=== PATIENT | female | born 1970 | race African-American/Black ===

== ENCOUNTER 2021-01-01 14:18 | Emergency (ER) | payer OTHER ==
[2021-01-01 15:36] LABS: ALT (SGPT) 16 U/L (8-55); AST (SGOT) 11 U/L (5-34); Albumin 3.5 g/dL (3.5-5.0); Alkaline Phosphatase 103 U/L (40-110); Anion Gap 12 mmol/L (10-20); BUN (Urea Nitrogen) 17 mg/dL (7.0-18.7); Bilirubin, Total 0.3 mg/dL (0.2-1.2); Calc. Creatinine Clearance 0 mL/min (70-130); Calcium 8.8 mg/dL (7.8-10.44); Carbon Dioxide 24 mmol/L (22-29); Chloride 110 mmol/L (98-107); Globulin 3.7 g/dL (2.4-3.5); Glucose 108 mg/dL (70-105); Potassium 3.6 mmol/L (3.5-5.1); Protein, Total 7.2 g/dL (6.0-8.3); Sodium 142 mmol/L (136-145)
[2021-01-01 15:37] LABS: #Monocytes 0.2 10x3/uL (0.0-1.1); %Basophils 0.3 % (0.0-2.0); %Lymphocytes 47.7 % (18.0-47.0); %Monocytes 5.4 % (0.0-10.0); Hemoglobin 10.8 g/dL (12.0-15.5); Mean Corpuscular HGB CONC 32.5 g/dL (32.0-36.0); Mean Corpuscular Hemoglobin 36.7 pg (27.0-33.0); Mean Corpuscular Volume 112.9 fl (81.6-98.3); Mean Platelet Volume 11.7 fl (7.4-10.4); Platelet Count 75 10x3/uL (150-450); RBC Distribution Width 15.8 % (11.5-14.5); Red Blood Cell (RBC) Count 2.94 10x6/uL (3.90-5.03); White Blood Cell (WBC) Count 3.7 10x3/uL (3.5-10.5)
[2021-01-01 15:40] LABS: #Neutrophils 1.7 10x3/uL (1.5-8.4); %Neutrophils 46.6 % (40.0-75.0)
[2021-01-01] MEDS ORDERED: Ketorolac Tromethamine 30 MG/ML VIAL ONE (16:33)
[2021-01-01] MEDS ORDERED: Dexamethasone 10 MG/ML VIAL ONE (16:33)
[2021-01-01] MEDS ORDERED: Ondansetron PF 4 MG/2 ML Vial ONE (16:44)
[2021-01-01 17:27] LABS: Bilirubin Neg (Negative); Blood, Urine Negative (Negative); Glucose, Urine (Dipstick) Normal (Negative); Ketone, Urine Negative (Negative); Leukocyte 25 (Negative); Nitrite Negative (Negative); Protein, Urine (Dipstick) Negative (Neg-Trace); Specific Gravity, Urine 1.025 (1.002-1.036); Urobilinogen Normal mg/dL (Less than 2)
[2021-01-01 17:55] LABS: Clarity Clear (Clear)
[2021-01-01 17:59] LABS: RBC/HPF None Seen HPF (0-3)
[2021-01-01 18:00] LABS: WBC/HPF 0-3 HPF (0-3)
[2021-01-01 18:01] LABS: Bacteria/HPF Rare-Few HPF (None Seen)
== END 2021-01-01 16:50 | disposition home or self-care (01) ==
LOC: CSHERS 14:18
DX: R07.89 Other chest pain (principal); D64.9 Anemia, unspecified; M19.90 Unspecified osteoarthritis, unspecified site; M06.9 Rheumatoid arthritis, unspecified; J45.909 Unspecified asthma, uncomplicated; I10 Essential (primary) hypertension; Z79.52 Long term (current) use of systemic steroids
CPT/HCPCS: 36415; 71045; 80053; 81003; 81015; 84484; 85025; 87086; 93005; 96374; 96375; J1100; J1885; J2405

== ENCOUNTER 2021-08-05 11:12 | Emergency (ER) | payer OTHER ==
[2021-08-05 11:56] LABS: Bilirubin Neg (Negative); Blood, Urine Negative (Negative); Clarity Clear (Clear); Glucose, Urine (Dipstick) Normal (Negative); Ketone, Urine Negative (Negative); Leukocyte Negative (Negative); Nitrite Negative (Negative); Protein, Urine (Dipstick) 15 mg/dl (Neg-Trace); Urobilinogen Normal mg/dL (Less than 2)
[2021-08-05] MEDS ORDERED: Ketorolac Tromethamine 30 MG/ML VIAL ONE (12:45)
== END 2021-08-05 11:25 | disposition home or self-care (01) ==
LOC: CSHERS 11:12
DX: R10.9 Unspecified abdominal pain (principal); R32 Unspecified urinary incontinence; J45.909 Unspecified asthma, uncomplicated; F17.210 Nicotine dependence, cigarettes, uncomplicated; D64.9 Anemia, unspecified; I10 Essential (primary) hypertension; Z79.899 Other long term (current) drug therapy
CPT/HCPCS: 81003; 87086; 96372; 99281; J1885

== ENCOUNTER 2021-11-15 02:32 | Emergency (ER) | payer OTHER ==
[2021-11-15] MEDS ORDERED: hydrOXYzine 25 MG TAB ONE (02:48)
[2021-11-15] MEDS ORDERED: Acetaminophen 500 MG TAB ONE (02:48)
[2021-11-15] MEDS ORDERED: Ketorolac Tromethamine 30 MG/ML VIAL ONE (02:48)
== END 2021-11-15 04:00 | disposition home or self-care (01) ==
LOC: CSHERS 02:32
DX: S80.01XA Contusion of right knee, initial encounter (principal); D64.9 Anemia, unspecified; I10 Essential (primary) hypertension; M06.9 Rheumatoid arthritis, unspecified; J45.909 Unspecified asthma, uncomplicated; F17.210 Nicotine dependence, cigarettes, uncomplicated; W18.09XA Striking against other object with subsequent fall, initial encounter
CPT/HCPCS: 96372; 99283; J1885

== ENCOUNTER 2022-02-17 05:06 | Emergency (ER) | payer OTHER | END 2022-02-17 06:24 | disposition home or self-care (01) | LOC: CSHERS 05:06 | DX: R11.0 Nausea (principal); R51.9 Headache, unspecified; I10 Essential (primary) hypertension; F17.210 Nicotine dependence, cigarettes, uncomplicated; D64.9 Anemia, unspecified | CPT/HCPCS: 99284 ==

== ENCOUNTER 2022-07-08 15:51 | Emergency (ER) | payer OTHER ==
[2022-07-08 16:34] LABS: Bilirubin Neg (Negative); Blood, Urine Negative (Negative); Clarity Clear (Clear); Glucose, Urine (Dipstick) Normal (Negative); Ketone, Urine Negative (Negative); Leukocyte Negative (Negative); Nitrite Negative (Negative); Protein, Urine (Dipstick) Negative (Neg-Trace); Specific Gravity, Urine 1.015 (1.005-1.030); Urobilinogen Normal mg/dL (Less than 2)
[2022-07-08] MEDS ORDERED: Ondansetron ODT 4 MG TAB ONE (16:47)
[2022-07-08] MEDS ORDERED: Ketorolac Tromethamine 30 MG/ML VIAL ONE (16:48)
[2022-07-08 17:12] LABS: #Monocytes 0.2 10x3/uL (0.0-1.1); #Neutrophils 1.7 10x3/uL (1.5-8.4); %Lymphocytes 38.4 % (18.0-47.0); %Monocytes 5.6 % (0.0-10.0); %Neutrophils 55.7 % (40.0-75.0); Hemoglobin 11.5 g/dL (12.0-15.5); Mean Corpuscular HGB CONC 35.2 g/dL (32.0-36.0); Mean Corpuscular Hemoglobin 39.4 pg (27.0-33.0); Mean Platelet Volume 10.9 fl (7.4-10.4); Platelet Count 84 10x3/uL (150-450); RBC Distribution Width 14.7 % (11.5-14.5); Red Blood Cell (RBC) Count 2.92 10x6/uL (3.90-5.03)
[2022-07-08 17:22] LABS: ALT (SGPT) 11 U/L (8-55); AST (SGOT) 14 U/L (5-34); Albumin 4.1 g/dL (3.5-5.0); Alkaline Phosphatase 99 U/L (40-110); Anion Gap 13 mmol/L (10-20); BUN (Urea Nitrogen) 13 mg/dL (7.0-18.7); Bilirubin, Total 0.3 mg/dL (0.2-1.2); Calc. Creatinine Clearance 0 mL/min (70-130); Carbon Dioxide 24 mmol/L (22-29); Chloride 107 mmol/L (98-107); Estimated GFR 97; Globulin 3.8 g/dL (2.4-3.5); Glucose 110 mg/dL (70-105); Lipase 19 U/L (8-78); Protein, Total 7.9 g/dL (6.0-8.3); Sodium 140 mmol/L (136-145)
== END 2022-07-08 19:00 | disposition home or self-care (01) ==
LOC: CSHERS 15:51
DX: M54.50 Low back pain, unspecified (principal); R10.30 Lower abdominal pain, unspecified; I10 Essential (primary) hypertension; F17.210 Nicotine dependence, cigarettes, uncomplicated
CPT/HCPCS: 36415; 74176; 80053; 81003; 83690; 85025; 96372; J1885; Q0162

== ENCOUNTER 2022-08-28 22:36 | Observation (INO) | payer OTHER ==
[2022-08-28] MEDS ORDERED: Ondansetron ODT 4 MG TAB ONE ×2 (22:50→22:52)
[2022-08-29] MEDS ORDERED: methylPREDNISolone Sod Succ/PF 125 MG/2 ML VIAL ONE (00:10)
[2022-08-29] MEDS ORDERED: Magnesium 2 GM/50 ML BAG (IN WATER) ONE (00:10)
[2022-08-29 00:28] LABS: #Monocytes 0.1 10x3/uL (0.0-1.1); #Neutrophils 1.8 10x3/uL (1.5-8.4); %Basophils 0.4 % (0.0-2.0); %Eosinophils 0.4 % (0.0-6.0); %Lymphocytes 25.5 % (18.0-47.0); %Monocytes 5.2 % (0.0-10.0); %Neutrophils 68.1 % (40.0-75.0); Hemoglobin 11.8 g/dL (12.0-15.5); Mean Corpuscular HGB CONC 35.5 g/dL (32.0-36.0); Mean Corpuscular Hemoglobin 38.7 pg (27.0-33.0); Mean Corpuscular Volume 108.9 fl (81.6-98.3); Mean Platelet Volume 9.9 fl (7.4-10.4); Platelet Count 103 10x3/uL (150-450); RBC Distribution Width 14.4 % (11.5-14.5); Red Blood Cell (RBC) Count 3.05 10x6/uL (3.90-5.03); White Blood Cell (WBC) Count 2.7 10x3/uL (3.5-10.5)
[2022-08-29 00:31] LABS: ALT (SGPT) 144 U/L (8-55); AST (SGOT) 121 U/L (5-34); Albumin 4.2 g/dL (3.5-5.0); Alkaline Phosphatase 137 U/L (40-110); Anion Gap 15 mmol/L (10-20); BUN (Urea Nitrogen) 12 mg/dL (7.0-18.7); Bilirubin, Total 0.2 mg/dL (0.2-1.2); Calc. Creatinine Clearance 0 mL/min (70-130); Calcium 9.2 mg/dL (7.8-10.44); Carbon Dioxide 21 mmol/L (22-29); Chloride 107 mmol/L (98-107); Estimated GFR 83; Globulin 3.8 g/dL (2.4-3.5); Glucose 130 mg/dL (70-105); Potassium 4.1 mmol/L (3.5-5.1); Sodium 139 mmol/L (136-145)
[2022-08-29 01:26] LABS: Anisocytosis SLIGHT = 6-15 cells (100X) (0-5/hpf); Macrocytosis SLIGHT = 6-15 cells (100X) (0-5/hpf); Ovalocytes SLIGHT = 2-5 cells (100X) (0-1/hpf); Platelet Morphology Comment Appears Decreased
[2022-08-29] MEDS ORDERED: Budesonide 0.5 MG/2 ML NEB NEB SCH ×2 (07:00→18:30)
[2022-08-29] MEDS ORDERED: Arformoterol 15 MCG/2 ML NEB NEB SCH ×2 (07:00→18:30)
[2022-08-29] MEDS ORDERED: Ibuprofen 200 MG TAB ONE (09:37)
[2022-08-29] MEDS ORDERED: methylPREDNISolone Sod Succ 40 MG VIAL IVP SCH (12:00)
[2022-08-30] MEDS ORDERED: Budesonide 0.5 MG/2 ML NEB ONE (06:37)
== END 2022-08-29 10:06 | disposition home or self-care (01) ==
LOC: CSHERS 22:36 → CSHERHOLD 08-29 04:19 → INTOOBSV 08-29 04:19
PROVIDERS: ADMIT Family Medicine; ATTEND Nurse Practitioner Family
DX: J45.901 Unspecified asthma with (acute) exacerbation (principal); F17.210 Nicotine dependence, cigarettes, uncomplicated; I10 Essential (primary) hypertension
CPT/HCPCS: 71045; 80053; 83880; 84484; 85025; 93005; 93970; 96374; 96375; G0378; J2930; J3475; J7620; J7626; Q0162

== ENCOUNTER 2022-11-19 16:28 | Emergency (ER) | payer OTHER ==
[2022-11-19 17:33] LABS: Hemoglobin 11.6 g/dL (12.0-15.5); Mean Corpuscular Hemoglobin 36.4 pg (27.0-33.0); Mean Platelet Volume 10.4 fl (7.4-10.4); Platelet Count 103 10x3/uL (150-450); RBC Distribution Width 15.4 % (11.5-14.5); Red Blood Cell (RBC) Count 3.19 10x6/uL (3.90-5.03); White Blood Cell (WBC) Count 3.8 10x3/uL (3.5-10.5)
[2022-11-19 17:39] LABS: ALT (SGPT) 20 U/L (8-55); AST (SGOT) 14 U/L (5-34); Alkaline Phosphatase 107 U/L (40-110); Anion Gap 12 mmol/L (10-20); BUN (Urea Nitrogen) 23 mg/dL (7.0-18.7); Bilirubin, Total 0.2 mg/dL (0.2-1.2); Calc. Creatinine Clearance 0 mL/min (70-130); Calcium 9.2 mg/dL (7.8-10.44); Carbon Dioxide 26 mmol/L (22-29); Chloride 107 mmol/L (98-107); Estimated GFR 61; Globulin 3.9 g/dL (2.4-3.5); Glucose 92 mg/dL (70-105); Potassium 4.3 mmol/L (3.5-5.1); Protein, Total 7.9 g/dL (6.0-8.3); Sodium 141 mmol/L (136-145)
[2022-11-19 18:07] LABS: MDiff Complete? YES
[2022-11-19 18:28] LABS: Bilirubin Neg (Negative); Blood, Urine Negative (Negative); Clarity Clear (Clear); Glucose, Urine (Dipstick) Normal (Negative); Ketone, Urine Negative (Negative); Leukocyte Negative (Negative); Nitrite Negative (Negative); Protein, Urine (Dipstick) Negative (Neg-Trace); Urobilinogen Normal mg/dL (Less than 2)
[2022-11-19 18:33] LABS: Band 1 % (5-11); Lymphocytes 64 % (21-51); Monocytes 2 % (0-10); Neutrophil 33 % (42-75)
[2022-11-19 18:37] LABS: Anisocytosis SLIGHT = 6-15 cells (100X) (0-5/hpf); Platelet Morphology Comment Appears Decreased; Small Platelets SLIGHT
[2022-11-19 18:39] LABS: Hypochromia SLIGHT = 6-15 cells (100X) (0-5/hpf)
== END 2022-11-19 19:47 | disposition home or self-care (01) ==
LOC: CSHERS 16:28
DX: R82.998 Other abnormal findings in urine (principal); R10.9 Unspecified abdominal pain; I10 Essential (primary) hypertension; F17.210 Nicotine dependence, cigarettes, uncomplicated
CPT/HCPCS: 36415; 80053; 81003; 85025; 99284

== ENCOUNTER 2023-03-05 18:18 | Emergency (ER) | payer OTHER ==
[2023-03-05] MEDS ORDERED: Lidocaine 1% w/Epinephrine 1:200K 30 ML VIAL ONE (19:04)
[2023-03-05] MEDS ORDERED: Clindamycin 150 MG CAP ONE (20:17)
[2023-03-05] MEDS ORDERED: Ketorolac Tromethamine 30 MG/ML VIAL ONE (20:17)
== END 2023-03-05 20:34 | disposition home or self-care (01) ==
LOC: CSHERS 18:18
DX: N76.4 Abscess of vulva (principal); F17.210 Nicotine dependence, cigarettes, uncomplicated
CPT/HCPCS: 87070; 87205; 96372; 99283; J1885

== ENCOUNTER 2023-05-13 02:59 | Emergency (ER) | payer OTHER ==
[2023-05-13] MEDS ORDERED: Ketorolac Tromethamine 30 MG/ML VIAL ONE (03:43)
[2023-05-13 04:11] LABS: Anion Gap 13 mmol/L (10-20); BUN (Urea Nitrogen) 14 mg/dL (7.0-18.7); Calc. Creatinine Clearance 0 mL/min (70-130); Calcium 9.4 mg/dL (7.8-10.44); Carbon Dioxide 24 mmol/L (22-29); Chloride 107 mmol/L (98-107); Estimated GFR 104; Glucose 115 mg/dL (70-105); Potassium 4.2 mmol/L (3.5-5.1); Sodium 140 mmol/L (136-145)
[2023-05-13 09:24] LABS: Uric Acid 3.8 mg/dL (2.6-6.0)
[2023-05-13 11:15] LABS: Follow-up Chemistry Comp? YES
== END 2023-05-13 06:03 | disposition home or self-care (01) ==
LOC: CSHERS 02:59
DX: M13.871 Other specified arthritis, right ankle and foot (principal); I10 Essential (primary) hypertension; D64.9 Anemia, unspecified; M06.9 Rheumatoid arthritis, unspecified; F17.210 Nicotine dependence, cigarettes, uncomplicated; Z79.899 Other long term (current) drug therapy
CPT/HCPCS: 36415; 80048; 84550; 96372; J1885

== ENCOUNTER 2023-07-18 13:06 | Emergency (ER) | payer OTHER ==
[2023-07-18 14:33] LABS: #Monocytes 0.3 10x3/uL (0.0-1.1); #Neutrophils 1.6 10x3/uL (1.5-8.4); %Basophils 0.2 % (0.0-2.0); %Eosinophils 0.8 % (0.0-6.0); %Lymphocytes 53.7 % (18.0-47.0); %Monocytes 6.4 % (0.0-10.0); Hematocrit 32.6 % (34.9-44.5); Hemoglobin 10.9 g/dL (12.0-15.5); Mean Corpuscular HGB CONC 33.5 g/dL (32.0-36.0); Mean Corpuscular Hemoglobin 37.5 pg (27.0-33.0); Mean Corpuscular Volume 111.8 fl (81.6-98.3); Mean Platelet Volume 10.7 fl (7.4-10.4); Platelet Count 100 10x3/uL (150-450); Red Blood Cell (RBC) Count 2.88 10x6/uL (3.90-5.03); White Blood Cell (WBC) Count 4.1 10x3/uL (3.5-10.5)
[2023-07-18] MEDS ORDERED: Ipratropium/Albuterol 3 ML NEB ONE (14:35)
[2023-07-18 14:48] LABS: ALT (SGPT) 16 U/L (8-55); AST (SGOT) 14 U/L (5-34); Albumin 3.7 g/dL (3.5-5.0); Alkaline Phosphatase 94 U/L (40-110); Anion Gap 14 mmol/L (10-20); BUN (Urea Nitrogen) 16 mg/dL (9.8-20.1); Bilirubin, Total 0.2 mg/dL (0.2-1.2); Calc. Creatinine Clearance 0 mL/min (70-130); Calcium 8.8 mg/dL (7.8-10.44); Carbon Dioxide 25 mmol/L (22-29); Chloride 108 mmol/L (98-107); Estimated GFR 78; Globulin 3.5 g/dL (2.4-3.5); Glucose 87 mg/dL (70-105); Lipase 22 U/L (8-78); Potassium 3.8 mmol/L (3.5-5.1); Protein, Total 7.2 g/dL (6.0-8.3); Sodium 143 mmol/L (136-145)
[2023-07-18] MEDS ORDERED: methylPREDNISolone Sod Succ 40 MG VIAL ONE (15:15)
[2023-07-18 15:33] LABS: Bilirubin Neg (Negative); Blood, Urine 150 (Negative); Clarity Cloudy (Clear); Glucose, Urine (Dipstick) Normal (Negative); Ketone, Urine Negative (Negative); Leukocyte 500 (Negative); Nitrite Negative (Negative); Protein, Urine (Dipstick) 15 mg/dl (Neg-Trace); Urobilinogen Normal mg/dL (Less than 2); pH, Urine 6.5 (5.0-9.0)
[2023-07-18 16:10] LABS: Bacteria/HPF 3+ HPF (None Seen); CAUTI Indications for Culture Pelvic or flank pain
[2023-07-18 16:13] LABS: Mucous/LPF 2+ LPF (<2+)
[2023-07-18 16:15] LABS: Urine Culture Reflex No No
== END 2023-07-18 16:44 | disposition home or self-care (01) ==
LOC: CSHERS 13:06
DX: J45.901 Unspecified asthma with (acute) exacerbation (principal); N39.0 Urinary tract infection, site not specified; I10 Essential (primary) hypertension; Z79.899 Other long term (current) drug therapy; F17.210 Nicotine dependence, cigarettes, uncomplicated
CPT/HCPCS: 71045; 80053; 81001; 83690; 85025; 96372; J2920; J7620

== ENCOUNTER 2023-12-11 15:27 | Emergency (ER) | payer OTHER | END 2023-12-11 16:34 | disposition home or self-care (01) | LOC: CSHERS 15:27 | DX: J32.9 Chronic sinusitis, unspecified (principal); I10 Essential (primary) hypertension; F17.210 Nicotine dependence, cigarettes, uncomplicated | CPT/HCPCS: 99283 ==

== ENCOUNTER 2025-05-18 16:15 | Emergency (ER) | payer MEDICAID, OTHER ==
[2025-05-18] MEDS ORDERED: Dexamethasone 10 MG/ML VIAL ONE (17:02)
[2025-05-18] MEDS ORDERED: Azithromycin 250 MG TAB ONE (18:30)
[2025-05-18] MEDS ORDERED: Albuterol 2.5 MG (3 mL) NEB ONE (18:33)
== END 2025-05-18 18:53 | disposition home or self-care (01) ==
LOC: CSHERS 16:15
DX: J45.901 Unspecified asthma with (acute) exacerbation (principal); R53.1 Weakness; B34.9 Viral infection, unspecified; I10 Essential (primary) hypertension; F17.210 Nicotine dependence, cigarettes, uncomplicated
CPT/HCPCS: 71045; 87426; 93005; 94640; 94760; J1100; J7611; J7620

== ENCOUNTER 2025-06-26 01:00 | Emergency (ER) | payer MEDICAID ==
[2025-06-26] MEDS ORDERED: Ketorolac Tromethamine 30 MG (1 mL) VIAL ONE (02:19)
== END 2025-06-26 02:20 | disposition home or self-care (01) ==
LOC: CSHERS 01:00
DX: K08.89 Other specified disorders of teeth and supporting structures (principal); I10 Essential (primary) hypertension; F17.210 Nicotine dependence, cigarettes, uncomplicated; Z55.6 Problems related to health literacy
CPT/HCPCS: 96372; 99282; J1885